=== PATIENT | female | born 1995 | race Caucasian/White ===

== ENCOUNTER 2017-10-11 11:23 | Emergency (ER) | payer MEDICAID, OTHER ==
[2017-10-11 11:32] VITALS: RESP 16
--- NOTE | 2017-10-11 12:53 | EDPHY ---
HPI/HX/ROS/PE/MDM Narrative: CHIEF COMPLAINT: Pelvic / back pain HPI: This patient is a 22 year-old female presenting with abdominal and back pain. Five days ago, she had intercourse with boyfriend who felt a "sharp" sensation which is unusual. She has an IUD in place, and shortly after this incident had her menstrual period for the first time since January, eight months ago. For the last five days, she has had pain in her lower right abdominal area, occasionally in the left as well. She has also had pain intermittently in her mid to lower back. She was evaluated by her product architect yesterday, who stated the IUD strings appear to be in place after a pelvic exam. The patient had right abdominal tenderness at that time. She denies dysuria, hematuria, or other urinary complaints. Currently, her pain is localized to the right lower quadrant and her low back. She denies vomiting, diarrhea, or lack of appetite. No chest pain, fever, shortness of breath, or other associated symptoms. REVIEW OF SYSTEMS: Aside from elements discussed in the HPI, a comprehensive 10-point review of systems was reviewed and is negative. PMH: Irritable bowel syndrome. [place] tooth extraction. SOCIAL HISTORY: Student at [employer]. Single. Lives in [place]. PHYSICAL EXAM: General:Patient is alert, in no acute distress. ENT:Eyes are normal to inspection. ENT inspection normal. Neck: Normal inspection. Full range of motion. Respiratory:No respiratory distress. Breath sounds normal bilaterally. Cardiovascular: Regular rate and rhythm. Strong peripheral pulses. Normal cap refill. Abdomen: Moderate tenderness to RLQ and right mid-abdomen. There are no peritoneal signs. There are normal bowel sounds. Back: Normal to inspection. No tenderness to palpation. Skin: Normal color. No rash. Warm and dry. Extremities: Normal appearance. Full range of motion. Neuro: Oriented x3. Normal motor function. Normal sensory function. ED Course: 22 y/o female presents with lower abdominal and back pain onset five days ago. Exam reveals moderate tenderness to the right lower quadrant and right mid- abdomen. She is afebrile, vitals within normal limits. Plan for labs including UA, BHCG. Plan for ultrasound abdomen/pelvis to asses IUD placement and rule out other acute processes including appendicitis. BHCG negative. 15:15 Administered 30mg IV Toradol for pain relief. 15:[address] Silva, radiologist. US pelvis shows IUD in place, no ovarian torsion. Appendix not visualized. Discussed results with patient. Plan for CT abdomen/pelvis for further evaluation. 17:[address] Villar, radiologist. CT abdomen/pelvis negative for acute processes. Reassessed patient. Discussed imaging results. Plan to discharge home in good condition. Follow up and return precautions discussed. She is comfortable with this plan. MDM: This is a young healthy female who presents with right-sided abdominal pain. She already underwent a full pelvic exam by [employer] within the last few days and declined another exam here in the ED. Her workup is negative for evidence of appendicitis, ovarian torsion, UTI, diverticulitis, ectopic . Her urine is positive for RBCs but she is on her period. On re-eval, she feels better and would like to go home. Quant BHCG sent by nurse instead of qualitative. - Data Points Imaging Results: Imaging Impressions Abdomen Ultrasound 10/11/17 13:10 Impression: 1. Arterial and venous flow is identified in both ovaries. Low likelihood of ovarian torsion. 2. Intrauterine device is in place. 3. Appendix is not definitely seen. Dr. Silva discussed these findings by telephone with Juan Luis Huitron MD on 10/11/2017 at 15:55 hours. Pelvic/Renal Ultrasound 10/11/17 13:10 Impression: 1. Arterial and venous flow is identified in both ovaries. Low likelihood of ovarian torsion. 2. Intrauterine device is in place. 3. Appendix is not definitely seen. Dr. Silva discussed these findings by telephone with Juan Luis Huitron MD on 10/11/2017 at 15:55 hours. Imaging: Discussed imaging studies w/ director call center sales Radiologist Laboratory Results: Laboratory Results 10/11/17 12:30 10/11/17 12:30 10/11/17 10/11/17 10/11/17 12:31 12:30 12:30 WBC 4.71 10^3/uL 10^3/uL (3.80-9.50) RBC 4.49 10^6/uL 10^6/uL (4.18-5.33) Hgb 13.9 g/dL g/dL (12.6-16.3) Hct 41.9 % % (38.0-47.0) MCV 93.3 fL fL (81.5-99.8) MCH 31.0 pg pg (27.9-34.1) MCHC 33.2 g/dL g/dL (32.4-36.7) RDW 12.4 % % (11.5-15.2) Plt Count 302 10^3/uL 10^3/uL (150-400) MPV 10.4 fL fL (8.7-11.7) Neut % (Auto) 40.6 % % (39.3-74.2) Lymph % (Auto) 40.1 % % (15.0-45.0) Park % (Auto) 10.4 % % (4.5-13.0) Eos % (Auto) 7.6 % % (0.6-7.6) Baso % (Auto) 1.1 % % (0.3-1.7) Nucleat RBC Rel Count 0.0 % % (0.0-0.2) Absolute Neuts (auto) 1.91 10^3/uL 10^3/uL (1.70-6.50) Absolute Lymphs (auto) 1.89 10^3/uL 10^3/uL (1.00-3.00) Absolute Monos (auto) 0.49 10^3/uL 10^3/uL (0.30-0.80) Absolute Eos (auto) 0.36 10^3/uL 10^3/uL (0.03-0.40) Absolute Basos (auto) 0.05 10^3/uL 10^3/uL (0.02-0.10) Absolute Nucleated RBC 0.00 10^3/uL 10^3/uL (0-0.01) Immature Gran % 0.2 % % (0.0-1.1) Immature Gran # 0.01 10^3/uL 10^3/uL (0.00-0.10) Sodium 142 mEq/L mEq/L (134-144) Potassium 4.2 mEq/L mEq/L (3.5-5.2) Chloride 106 mEq/L mEq/L (97-110) Carbon Dioxide 25 mEq/l mEq/l (22-31) Anion Gap 11 mEq/L mEq/L (8-16) BUN 9 mg/dL mg/dL (7-23) Creatinine 0.7 mg/dL mg/dL (0.6-1.0) Estimated GFR > 60 Glucose 85 mg/dL mg/dL (70-100) Calcium 9.2 mg/dL mg/dL (8.5-10.4) Beta HCG, Quant Urine Color YELLOW Urine Appearance HAZY Urine pH 5.0 (5.0-7.5) Ur Specific Stanton 1.024 (1.002-1.030) Urine Protein NEGATIVE (NEGATIVE) Urine Ketones NEGATIVE (NEGATIVE) Urine Blood 3+ H (NEGATIVE) Urine Nitrate NEGATIVE (NEGATIVE) Urine Bilirubin NEGATIVE (NEGATIVE) Urine Urobilinogen NEGATIVE EU EU (0.2-1.0) Ur Leukocyte Esterase NEGATIVE (NEGATIVE) Urine RBC 25-50 /hpf H /hpf (0-3) Urine WBC 3-5 /hpf H /hpf (0-3) Ur Epithelial Cells TRACE /lpf /lpf (NONE-1+) Urine Bacteria TRACE /hpf H /hpf (NONE SEEN) Urine Mucus 1+ /lpf /lpf (NONE-1+) Urine Glucose NEGATIVE (NEGATIVE) 10/11/17 11:00 WBC RBC Hgb Hct MCV MCH MCHC RDW Plt Count MPV Neut % (Auto) Lymph % (Auto) Park % (Auto) Eos % (Auto) Baso % (Auto) Nucleat RBC Rel Count Absolute Neuts (auto) Absolute Lymphs (auto) Absolute Monos (auto) Absolute Eos (auto) Absolute Basos (auto) Absolute Nucleated RBC Immature Gran % Immature Gran # Sodium Potassium Chloride Carbon Dioxide Anion Gap BUN Creatinine Estimated GFR Glucose Calcium Beta HCG, Quant < 2.39 mIU/mL mIU/mL (0.00-4.83) Urine Color Urine Appearance Urine pH Ur Specific Stanton Urine Protein Urine Ketones Urine Blood Urine Nitrate Urine Bilirubin Urine Urobilinogen Ur Leukocyte Esterase Urine RBC Urine WBC Ur Epithelial Cells Urine Bacteria Urine Mucus Urine Glucose Medications Given: Discontinued Medications Ketorolac Tromethamine (Toradol) 30 mg IVP EDNOW ONE Stop: 10/11/17 15:14 Last Admin: 10/11/17 15:24 Dose: 30 mg General Time Seen by Provider: 10/11/17 12:51 Initial Vital Signs: Initial Vital Signs Temperature (C) 36.4 C 10/11/17 11:28 Heart Rate 72 10/11/17 11:28 Respiratory Rate 16 10/11/17 11:28 Blood Pressure 118/73 10/11/17 11:28 O2 Sat (%) 99 10/11/17 11:28 O2 Delivery Mode Room Air Allergies/Adverse Reactions: No Known Allergies Allergy (Unverified 10/11/17 11:32) Home Medications: Medication Instructions Recorded Adderall 10 MG (*) 10/11/17 [id number] 10/11/17 Departure - Departure Disposition: Home, Routine, Self-Care Clinical Impression: Abdominal pain Condition: Good Instructions: Acute Abdominal Pain (ED) Additional Instructions: 1. Follow up with your primary care provider in 2-3 days for further evaluation. 2. Return to the emergency department for increasing pain or if you develop fever or uncontrollable vomiting or diarrhea. Referrals: Gayla Hernandez MD [Medical Doctor] - As per Instructions Report Scribed for: Juan Luis Huitron Report Scribed by: Juana Simon Date of Report: 10/11/17 Time of Report: 12:52 Physician Review and Approval Statement: Portions of this note were transcribed by an ED scribe. I personally performed the history, physical exam, and medical decision making; and confirm the accuracy of the information in the transcribed note.
[2017-10-11] MEDS ORDERED: KETOROLAC 30 MG/1 ML SDV IVP ONE (15:13)
[2017-10-11] MEDS ORDERED: IOPAMIDOL (ISOVUE-300) 100 ML BTL ONE (16:55)
[2017-10-11 17:00] LABS: PLATELET COUNT 302 10^3/uL (150-400)
[2017-10-11 17:58] VITALS: BP 118/75; PULSE 76; TEMP 98.6; O2SAT 97
== END 2017-10-11 18:00 | disposition home or self-care (01) ==
DX: R10.31 Right lower quadrant pain (principal)
CPT/HCPCS: 96374; J1885; Q9967